=== PATIENT | male | born 1960 | race Caucasian/White ===

== ENCOUNTER 2017-04-11 12:53 | Observation (INO) | payer OTHER, SELFPAY ==
[2017-04-11] MEDS ORDERED: HYDROcodone/Acetaminophen 10/325 mg Tablet ONE (13:51)
[2017-04-11] MEDS ORDERED: Ondansetron ODT 4 MG TAB ONE (13:55)
[2017-04-11] MEDS ORDERED: Morphine 10 MG/ML VIAL ONE (15:24)
[2017-04-11] MEDS ORDERED: Enoxaparin Sodium 100 MG/ML SYRINGE ONE (15:29)
[2017-04-11] MEDS ORDERED: Ondansetron HCl/PF 4 MG/2 ML Vial ONE (15:29)
--- NOTE | 2017-04-11 16:00 | ULT ---
RIGHT UPPER EXTREMITY VENOUS DUPLEX ULTRASOUND INCLUDING COLOR AND SPECTRAL DOPPLER IMAGING: History: 56-year-old male with right upper extremity pain and redness along the medial right arm. History of prior surgery with IV placement in right arm. FINDINGS: The visualized right internal jugular, subclavian, axillary, brachial, and radial and ulnar veins sh ow normal compressibility and normal augmentation without evidence for intraluminal thrombus. Within the right basilic vein there is some extensive intraluminal thrombus extending from the midportion of the upper arm down to the midportion of the lower arm including the region of the elbow. The ceph alic vein appears to be free of thrombus. IMPRESSION: Fairly extensive intraluminal thrombus and evidence for venous thrombus involving the right basilic vein from the midportion of the upper arm down to the midportion of the lower arm including the leve l of the elbow. The remainder of the veins appear patent. POS: [facility]
[2017-04-11 16:12] LABS: #Eosinphils 0.3 thou/uL (0.0-0.7); #Lymphocytes 2.5 thou/uL (1.20-3.40); #Monocytes 1.3 thou/uL (0.11-0.59); #Neutrophils 8.3 thou/uL (1.40-6.50); %Basophils 0.2 % (0.0-1.0); %Eosinophils 2.6 % (0.0-10.0); %Lymphocytes 20.4 % (21.0-51.0); %Monocytes 10.3 % (0.0-10.0); Hematocrit 43.6 % (42.0-52.0); Mean Platelet Volume 7.3 fL (7.4-10.4); Red Blood Cell (RBC) Count 4.45 mill/uL (4.70-6.10); White Blood Cell (WBC) Count 12.4 thou/uL (4.8-10.8)
[2017-04-11 16:19] LABS: PTT 28.2 SEC (22.9-36.1); Prothrombin Time 12.6 SEC (12.0-14.7)
[2017-04-11] MEDS ORDERED: ISOVUE-370 76%-LOCM 1 ML ONE (16:20)
[2017-04-11] MEDS ORDERED: Acetaminophen 650 MG Suppository PR PRN (16:25)
[2017-04-11] MEDS ORDERED: Ondansetron HCl/PF 4 MG/2 ML Vial IVP PRN (16:25)
[2017-04-11] MEDS ORDERED: Ondansetron ODT 4 MG TAB PO PRN (16:25)
[2017-04-11 16:33] LABS: ALT (SGPT) 26 U/L (8-55); AST (SGOT) 26 U/L (5-34); Alkaline Phosphatase 130 U/L (40-150); Anion Gap 16 mmol/L (10-20); BUN (Urea Nitrogen) 16 mg/dL (8.4-25.7); Bilirubin, Total 1.3 mg/dL (0.2-1.2); CK (CPK) 120 U/L (30-200); Calc. Creatinine Clearance 0 mL/min (70-130); Calcium 8.8 mg/dL (7.8-10.44); Carbon Dioxide 23 mmol/L (22-29); Chloride 99 mmol/L (98-107); Estimated GFR-MDRD Greater than 90; Globulin 3.5 g/dL (2.4-3.5); Lipase 8 U/L (8-78); Protein, Total 7.1 g/dL (6.0-8.3)
[2017-04-11] MEDS ORDERED: Senokot 8.6 MG TAB PO PRN (17:22)
[2017-04-11] MEDS ORDERED: HYDROcodone/Acetaminophen 5/325 mg Tablet PO PRN (17:23)
[2017-04-11] MEDS ORDERED: Pantoprazole 40 MG VIAL IVP SCH (17:30)
[2017-04-11 18:14] VITALS: BMI 27.7
--- NOTE | 2017-04-11 19:24 | CT ---
ABDOMEN CT WITH CONTRAST PELVIC CT WITH CONTRAST Comparison: 07-06-16 History: Abdominal pain. Technique: Abdomen and pelvis CT performed with IV contrast. Coronal reformatted images are submitte d for interpretation. FINDINGS: ABDOMEN CT: Right lower lobe scar and atelectasis. Minimal atelectasis in the left lower lobe. Heart size is nor mal. No significant pericardial fluid. The descending thoracic aorta and abdominal aorta have a norm al caliber. No periaortic fat stranding. Symmetric attenuation of the psoas muscles. Gallbladder is unremarkable. Intra and extrahepatic portal vein is patent. Liver, spleen, pancreas and adrenal glands have appropriate enhancement. No gastrohepatic, retrocrural or periportal lymphadenopathy. There are scattered nonspecific nonenlarged lymph nodes. No evidence of mass, free air, or free flui d. Gallbladder is unremarkable. Limited evaluation of the alimentary canal due to lack of oral contrast. There are a few fluid fille d borderline loops of small bowel in the left upper quadrant with mild mucosal prominence. There is fluid attenuation in the right hemicolon without colonic wall thickening. Appendix is not appreciate d. No inflammation of the cecal apex. Left hemicolon demonstrates fecal material. No evidence of col onic wall thickening. Symmetric enhancement of the kidneys. Bilaterally, nonobstructive uropathy. PELVIC CT: No mass, lymphadenopathy, free air or free fluid. Urinary bladder is unremarkable. There are no lyti c or blastic lesions in the abdomen or pelvis. IMPRESSION: 1. No acute abnormality in the abdomen and pelvis. There is nonspecific fluid attenuation in the rig ht hemicolon without evidence of chronic wall thickening. Possibility of colitis cannot be completel y exclude but is less favored. 2. There are a few fluid filled loops of small bowel with mild mucosal prominence, also nonspecific. Correlate clinically for enteritis. POS: [facility]
--- NOTE | 2017-04-11 19:42 | CT ---
CT ANGIOGRAM OF THE CHEST: History: Evaluate for pulmonary embolism. Patient is having left arm and right leg pain. Patient was on APD a few weeks ago. Patient reports swelling of the extremities. Comparison: None. Technique: CT angiogram of the chest was performed in the axial plane. Bilateral oblique and coronal 3D reformatted images are submitted for interpretation. FINDINGS: Trachea and central bronchi are patent. Minimal debris in the distal trachea is noted. There are pat juana opacities throughout the lung parenchyma. No consolidation. Dependent atelectatic changes are no kenneth. Additional areas of scarring are identified. There is irregular, slightly spiculated opacity in the right upper lobe measuring 0.8 cm. Stable 5 mm nodule along the minor fissure. No pneumothorax or pleural effusion. No mediastinal mass, lymphadenopathy, or hematoma. Heart size is within normal limits. No pericardia l effusion. Visualized upper solid organs are unremarkable. The thoracic and upper abdominal aorta h ave a normal caliber. No periaortic fat stranding. There is adequate contrast opacification of the pulmonary arterial systems and level of segmental ar teries. No filling defect to imply thromboembolism. There are no lytic or blastic lesions in regard to the osseous structures. IMPRESSION: 1. No evidence of pulmonary artery embolism to the segmental arteries. 2. Stable pleural based nodule along the minor fissure. 3. Spiculated lesion in the right upper lobe, measuring approximately [address] POS: [facility]
[2017-04-11] MEDS: Sodium Chloride 0.9% 1,000 ML IV SCH (20:16)
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
[2017-04-11] MEDS ORDERED: Famotidine/PF 20 mg/2ml Vial SLOW IVP SCH (21:00)
[2017-04-11] MEDS: HYDROcodone/Acetaminophen 10/325 mg Tablet PO PRN (22:12)
[2017-04-12] MEDS: Sodium Chloride 0.9% 1,000 ML IV SCH ×2 (03:27→13:42)
[2017-04-12] MEDS: HYDROcodone/Acetaminophen 10/325 mg Tablet PO PRN ×3 (05:02→13:35)
[2017-04-12 05:18] LABS: Bilirubin Negative (Negative); Blood, Urine Negative (Negative); Glucose, Urine (Dipstick) Negative (Negative); Ketone, Urine Negative (Negative); Nitrite Negative (Negative); Protein, Urine (Dipstick) Negative (Neg-Trace)
--- NOTE | 2017-04-12 07:40 | PDOC.PN ---
- Subjective Encounter Start Date: 04/12/17 Encounter Start Time: 07:30 Subjective: Patient with more bowel movements overnight. Resolution of Nauea/ vomiting/ -: and abdominal pain. Still mildly tachycardic. Wants to eat and go home. - Objective Resuscitation Status: Resuscitation Status FULL:Full Resuscitation MAR Reviewed: Yes Vital Signs & Weight: Vital Signs (12 hours) Temp Pulse Resp BP Pulse Ox 04/12/17 03:20 98.2 F 108 H 24 H 135/65 97 04/11/17 23:18 98.5 F 113 H 26 H 131/71 95 04/11/17 20:16 99.4 F 111 H 24 H I&O: 04/11/17 04/12/17 04/13/17 06:59 06:59 06:59 Intake Total 1000 Output Total 325 Balance 675 Result Diagrams: 04/11/17 15:54 04/11/17 15:54 Phys Exam - Physical Examination Constitutional: NAD HEENT: moist MMs Respiratory: no wheezing, no rales, no rhonchi Cardiovascular: RRR, no significant murmur mild tachycardia (100 bpm) Gastrointestinal: soft, non-tender, positive bowel sounds Neurological: non-focal, moves all 4 limbs Psychiatric: normal affect, A&O x 3 Dx/Plan (1) SIRS (systemic inflammatory response syndrome) Code(s): R65.10 - SIRS OF NON-INFECTIOUS ORIGIN W/O ACUTE ORGAN DYSFUNCTION Status: Acute (2) Constipation due to opioid therapy Code(s): K59.03 - DRUG INDUCED CONSTIPATION; T40.2X5A - ADVERSE EFFECT OF OTHER OPIOIDS, INITIAL ENCOUNTER Status: Resolved Plan: Abdominal pain, nausea, and vomiting resolved this AM. Will advance diet. (3) Acute thrombosis of right basilic vein Code(s): I82.611 - ACUTE EMBOLISM AND THOMBOS OF SUPERFIC VEINS OF R UP EXTREM Status: Acute Comment: Peripheral thrombosis. Not at risk of progressing to DVT. Symptomatic treatment. No need for systemic anticoagulation. - Plan cont current plan of care Oral food and fluids this AM. Patient refusing IV. If tolerating diet well -: can d/c home later this morning. * . - Discharge Day Encounter end time: 07:40
[2017-04-12 08:48] LABS: #Basophils 0.1 thou/uL (0.0-0.2); #Eosinphils 0.7 thou/uL (0.0-0.7); #Lymphocytes 2.4 thou/uL (1.20-3.40); #Monocytes 1.2 thou/uL (0.11-0.59); #Neutrophils 6.3 thou/uL (1.40-6.50); %Basophils 0.6 % (0.0-1.0); %Eosinophils 6.2 % (0.0-10.0); %Lymphocytes 22.7 % (21.0-51.0); %Monocytes 11.2 % (0.0-10.0); Hematocrit 39.8 % (42.0-52.0); Mean Platelet Volume 7.7 fL (7.4-10.4); White Blood Cell (WBC) Count 10.7 thou/uL (4.8-10.8)
[2017-04-12] MEDS ORDERED: Polyethylene Glycol 3350 17 GM Packet PO SCH (09:00)
[2017-04-12] MEDS ORDERED: Pantoprazole 40 MG VIAL IVP SCH ×2 (09:00→21:00)
[2017-04-12] MEDS ORDERED: Enoxaparin Sodium 40 MG/0.4 ML SYRINGE SC SCH (09:00)
[2017-04-12 09:12] LABS: Anion Gap 15 mmol/L (10-20); BUN (Urea Nitrogen) 13 mg/dL (8.4-25.7); Calc. Creatinine Clearance 152 mL/min (70-130); Calcium 8.6 mg/dL (7.8-10.44); Carbon Dioxide 22 mmol/L (22-29); Chloride 101 mmol/L (98-107); Estimated GFR-MDRD Greater than 90
[2017-04-12 12:04] VITALS: BP 121/64; TEMP 97.9
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
== END 2017-04-12 13:59 | disposition home or self-care (01) ==
LOC: ERS 12:53 → 2SE 15:52
PROVIDERS: ADMIT Emergency Medicine; ATTEND Emergency Medicine
DX: S42.302A Unspecified fracture of shaft of humerus, left arm, initial encounter for closed fracture (principal); S82.91XA Unspecified fracture of right lower leg, initial encounter for closed fracture; R65.10 Systemic inflammatory response syndrome (SIRS) of non-infectious origin without acute organ dysfunction; R11.2 Nausea with vomiting, unspecified; R10.9 Unspecified abdominal pain; K59.00 Constipation, unspecified; G89.18 Other acute postprocedural pain; F17.210 Nicotine dependence, cigarettes, uncomplicated; I82.611 Acute embolism and thrombosis of superficial veins of right upper extremity; Z79.82 Long term (current) use of aspirin; Z79.899 Other long term (current) drug therapy; Z91.010 Allergy to peanuts; Z91.018 Allergy to other foods; Z90.49 Acquired absence of other specified parts of digestive tract; Z98.890 Other specified postprocedural states
CPT/HCPCS: 36415; 71275; 74177; 80048; 80053; 81003; 82550; 83690; 85025; 85610; 85730; 87040; 87086; 93005; 96361; 96372; 96374; 96375; 96376; C9113; G0378; J1650; J2270; J2405; Q0162

== ENCOUNTER 2017-06-08 11:56 | Day surgery (SDC) | payer SELFPAY ==
[2017-06-07 13:25] VITALS: BMI 29.7
[2017-06-08] MEDS ORDERED: Fentanyl 100 MCG/2 ML VIAL ONE ×2 (12:37→13:27)
[2017-06-08] MEDS ORDERED: CEFAZOLIN/Water 2 GM/20 ML SYRINGE ONE (12:41)
[2017-06-08] MEDS ORDERED: Neomycin-Polymyxin 1 ML AMP ONE (12:42)
[2017-06-08] MEDS ORDERED: HYDROmorphone 0.5 MG/0.5 ML SYRINGE ONE (13:27)
[2017-06-08] MEDS ORDERED: Bupivacaine/Epinephrine 0.25% 30 ML VIAL ONE (13:34)
[2017-06-08] MEDS ORDERED: Ketorolac Tromethamine 30 MG/ML VIAL ONE (14:38)
[2017-06-08] MEDS ORDERED: Lidocaine 1% PF 5 ML VIAL ONE (15:35)
[2017-06-08] MEDS ORDERED: Propofol 200 MG/20 ML VIAL ONE (15:35)
--- NOTE | 2017-06-08 18:46 | OP ---
DATE OF PROCEDURE: 06/08/2017 PREOPERATIVE DIAGNOSIS: Loose and symptomatic screws in the right distal tibia. POSTOPERATIVE DIAGNOSIS: Loose and symptomatic screws in the right distal tibia. PROCEDURE PERFORMED: Removal of loose screws from the right distal tibia. SURGEON: Alan Bueno M.D. ANESTHESIA: General. TECHNIQUE: The patient was given preoperative IV antibiotics, taken to the operating room, placed in the supine position. Satisfactory general anesthesia was performed. The right leg, ankle and foot were sterilely prepped and draped in the usual fashion. After exsanguination, the tourniquet at the right calf was raised 250 mmHg. The two heads of the screws at the distal aspect of the leg just pro ximal to the ankle joint was located with C-arm and skin edges were marked, two incisions were made d irectly over the screws which were partially in the tibia, but were very loose. The two interlocking screws that had been placed previously for the interlocking the angie were located and were removed. The 2 wounds, one was anterior and one was medial were both copiously irrigated with antibiotic solut ion and then closed using 3-0 Rapide. The wounds were infiltrated with a total of 20 mL of 0.25% Mar alexandra with epinephrine. A sterile dressing was applied. Tourniquet was released. The patient was a wakened, extubated, and transferred to the recovery room in stable condition. ESTIMATED BLOOD LOSS: 10 mL. COMPLICATIONS: None.
== END 2017-06-08 15:45 | disposition home or self-care (01) ==
LOC: SDC 11:56
PROVIDERS: ATTEND Orthopaedic Surgery
PROC: 0YP90YZ Removal of Other Device from Right Lower Extremity, Open Approach (ICD-10-PCS; principal; 2017-06-08)
DX: T84.126A Displacement of internal fixation device of bone of right lower leg, initial encounter (principal); T84.84XA Pain due to internal orthopedic prosthetic devices, implants and grafts, initial encounter; Z91.010 Allergy to peanuts; Z91.018 Allergy to other foods; Z79.82 Long term (current) use of aspirin; Z79.899 Other long term (current) drug therapy; Z90.49 Acquired absence of other specified parts of digestive tract; Z98.890 Other specified postprocedural states
CPT/HCPCS: 76000; 93005; 93010; 96374; J1170; J1885; J2001; J2704; J3010

== ENCOUNTER 2019-05-28 23:57 | Emergency (ER) | payer SELFPAY ==
--- NOTE | 2019-05-29 07:52 | ULT ---
PRELIMINARY REPORT/[facility]/EMERGENCY AFTER HOURS PROCEDURE: EXAM: US Duplex right Lower Extremity Veins. CLINICAL HISTORY: HX: PAIN SWELLING RLE. TECHNIQUE: Real-time ultrasound scan of the veins of the right lower extremity with color Doppler pat w, spectral waveform analysis and compression. COMPARISON: None provided. FINDINGS: DEEP VEINS: The common femoral, femoral, and popliteal veins are echolucent and compressible. These v essels demonstrate respiratory variation and augmentation. There is normal color Doppler flow through out. The visualized calf veins are also patent. SUPERFICIAL VEINS: The visualized greater saphenous vein is patent. SOFT TISSUES: No popliteal fossa cyst however a 4.7 x 1.8 by 2.7 cm fluid collection is noted in the medial RIGHT ankle. IMPRESSION: No deep venous thrombosis in the right lower extremity. Fluid collection in the medial R IGHT ankle for which clinical correlation is advised ELECTRONICALLY SIGNED BY: Faustino Merino MD May 29, 2019 1:11:01 AM DISEASE CONTROL INSPECTOR FINAL REPORT EMERGENT AFTER HOURS RIGHT LOWER EXTREMITY VENOUS ULTRASOUND: FINDINGS/IMPRESSION: I agree with the findings and impression given in the preliminary report per [facility] physici an. No evidence of deep vein thrombosis. POS: [facility]
== END 2019-05-29 01:27 | disposition home or self-care (01) ==
LOC: ERS 23:57
DX: R60.0 Localized edema (principal); F32.9 Major depressive disorder, single episode, unspecified; F17.210 Nicotine dependence, cigarettes, uncomplicated; Z71.6 Tobacco abuse counseling
CPT/HCPCS: 99406

== ENCOUNTER 2023-03-30 23:31 | Emergency (ER) | payer OTHER, SELFPAY ==
[2023-03-31] MEDS ORDERED: Doxycycline 100 MG CAP ONE (00:17)
[2023-03-31] MEDS ORDERED: HYDROcodone/Acetaminophen 5/325 mg Tablet ONE (00:17)
== END 2023-03-31 00:22 ==
LOC: ERS 23:31 → EEVIPCON 23:31 → ERS 03-31 00:22
DX: L03.115 Cellulitis of right lower limb (principal); F17.210 Nicotine dependence, cigarettes, uncomplicated
CPT/HCPCS: 99283